=== PATIENT | female | born 1960 | race Caucasian/White ===

== ENCOUNTER 2019-04-04 06:16 | Inpatient (IN) | payer OTHER ==
[2019-04-03 12:31] LABS: BASOPHIL % 0.3 % (0-2); PLATELET COUNT 150 x10^3mcL (130-400)
[2019-04-03 12:34] LABS: RED CELL DISTRIBUTION WIDTH 15.2 % (11.5-14.5)
[2019-04-03 12:40] LABS: CALCIUM 9.9 mg/dL (8.5-10.1); CARBON DIOXIDE 30.2 mmol/L (21-32); CHLORIDE SERUM 107 mmol/L (98-107); CREATININE SERUM 0.6 mg/dL (0.6-1.0); GFR1 > 60 mL/min; GLUCOSE SERUM 106 mg/dL (74-106); POTASSIUM SERUM 4.2 mmol/L (3.5-5.1); SODIUM SERUM 140 mmol/L (136-145)
[~2019-04-04] VITALS: Ht 160 cm; Wt 60.1 kg
[2019-04-04 06:28] VITALS: BP 130/79
[2019-04-04 10:18] VITALS: BP 123/62
[2019-04-04 17:09] VITALS: BP 100/62
[2019-04-04 20:35] VITALS: BP 100/53
[2019-04-05 05:11] VITALS: BP 108/66
[2019-04-05 08:53] VITALS: BP 109/62
[2019-04-05 16:50] VITALS: BP 111/68
[2019-04-05 20:30] VITALS: BP 118/64
[2019-04-06 04:21] VITALS: BP 101/58
[2019-04-06 07:48] VITALS: BP 102/63
[2019-04-06 11:30] VITALS: BP 108/75
[2019-04-06 12:33] VITALS: BP 108/75
[2019-04-06 12:38] VITALS: BP 108/75
== END 2019-04-06 13:35 | disposition home or self-care (01) | DRG 747 ==
LOC: MU 06:16 → DS 07:30 → EDSTATUS 07:30 → MU 09:23
PROVIDERS: ADMIT Obstetrics & Gynecology
PROC: 0UQF0ZZ Repair Cul-de-sac, Open Approach (ICD-10-PCS; 2019-04-04)
PROC: 0JQC0ZZ Repair Pelvic Region Subcutaneous Tissue and Fascia, Open Approach (ICD-10-PCS; principal; 2019-04-04 07:00)
DX: N81.11 Cystocele, midline (principal); N39.3 Stress incontinence (female) (male); N32.81 Overactive bladder; N81.6 Rectocele
CPT/HCPCS: C1758; G0378; J0690; J2175; J2250; J3010; J7070; Q0163

== ENCOUNTER 2019-04-07 02:42 | Emergency (ER) | payer OTHER ==
[~2019-04-07] VITALS: Ht 162.6 cm; Wt 58.5 kg
[2019-04-07 02:45] VITALS: Ht 162.6 cm; Wt 58.5 kg
[2019-04-07 04:28] LABS: UA SPECIFIC GRAVITY <=1.005 (1.005-1.035); microscopic required? YES; urine erythrocyte TRACE (NEGATIVE)
[2019-04-07 04:39] LABS: BASOPHIL % 0.6 % (0-2); PLATELET COUNT 132 x10^3mcL (130-400); RED CELL DISTRIBUTION WIDTH 13.9 % (11.5-14.5)
[2019-04-07 04:50] LABS: CALCIUM 9.9 mg/dL (8.5-10.1); CARBON DIOXIDE 26.4 mmol/L (21-32); CHLORIDE SERUM 105 mmol/L (98-107); CREATININE SERUM 0.6 mg/dL (0.6-1.0); GFR1 > 60 mL/min; GLUCOSE SERUM 112 mg/dL (74-106); SODIUM SERUM 139 mmol/L (136-145)
[2019-04-07 05:53] VITALS: BP 110/79
== END 2019-04-07 05:33 | disposition home or self-care (01) ==
LOC: ED 02:42
PROVIDERS: Emergency Medicine
DX: N32.89 Other specified disorders of bladder (principal); I10 Essential (primary) hypertension
CPT/HCPCS: 36415